=== PATIENT | female | born 1955 | race American Indian/Alaskan Native ===

== ENCOUNTER 2016-05-27 07:45 | Inpatient (IN) | payer OTHER ==
[2016-05-12 11:54] VITALS: BMI 55.7
[2016-06-07] MEDS ORDERED: Bacitracin 150,000 UNIT in Sodium Chloride 0.9% Irrig 3,000 ML IR SCH (09:00)
--- NOTE | 2016-06-07 12:30 | CP.PCM.HP ---
History of Present Illness - History of Present Illness History of Present Illness: 61F complains of left knee pain with significant DJD, failed conservative management, and elected for TKR. Patient had successful R TKR in 2007 without complications. PMH: asthma, has not used inhaler in over a year Medical clearance on chart PSH: cholecystectomy, hysterectomy, hernia repair, excisional biopsy breast, lap band labs on chart, reviewed, pt treated for 10,000-50,000 gram neg rods on culture with Bactrim Present on Admission - Present on Admission Any Indicators Present on Admission: No Past Patient History - Past Medical History & Family History Past Medical History?: Yes - Past Social History Smoking Status: Never Smoked - CARDIAC Hx Cardiac Disorders: Yes Hx Peripheral Edema: Yes - PULMONARY Hx Respiratory Disorders: Yes Hx Asthma: Yes (NEVER HOSPITALIZED-LAST EPISODE 2014) - NEUROLOGICAL Hx Neurological Disorder: No - HEENT Hx HEENT Problems: No - RENAL Hx Chronic Kidney Disease: No - ENDOCRINE/METABOLIC Hx Endocrine Disorders: No - HEMATOLOGICAL/ONCOLOGICAL Hx Blood Disorders: Yes Hx Blood Transfusions: Yes (childbirth 32 yrs ago) Hx Blood Transfusion Reaction: No - INTEGUMENTARY Hx Dermatological Problems: Yes Other/Comment: HX: LEFT BREAST LUMPECTOMY - MUSCULOSKELETAL/RHEUMATOLOGICAL Hx Musculoskeletal Disorders: Yes Hx Osteoarthritis: Yes (HX:BARBARA. IN RIGHT AND LEFT KNEES) - GASTROINTESTINAL Hx Gastrointestinal Disorders: Yes Hx Gall Bladder Disease: Yes Other/Comment: HX: LAP BAND - GENITOURINARY/GYNECOLOGICAL Hx Genitourinary Disorders: No - PSYCHIATRIC Hx Psychophysiologic Disorder: No Hx Substance Use: No - SURGICAL HISTORY Hx Surgeries: Yes Hx Breast Biopsy: Yes (LEFT BREAST) Hx Cholecystectomy: Yes Hx Dilation and Curettage: Yes (2012) Hx Herniorrhaphy: Yes (HX:UMBILICAL HERNIA REPAIR) Hx Hysterectomy: Yes Hx Joint Replacement: Yes Hx Orthopedic Surgery: Yes (TOTAL RIGHT KNEE REPLACEMRNT 2001) Hx Tubal Ligation: Yes (1989) Other/Comment: HX: GASTRIC LAP BAND 2009. HX: LEFT BREAST LUMPECTOMY - ANESTHESIA Hx Anesthesia: Yes Hx Anesthesia Reactions: No Hx Malignant Hyperthermia: No Has any member of the family had a problem w/ anesthesia?: Yes (cardiac arrest) Meds Allergies/Adverse Reactions: Allergies Allergy/AdvReac Type Severity Reaction Status Date / Time shellfish derived Allergy Severe ANAPHYLAXIS Verified 05/12/16 09:07 Physical Exam - Constitutional Appears: Well, No Acute Distress - Respiratory Exam Respiratory Exam: NORMAL BREATHING PATTERN - Extremities Exam Additional comments: calves soft NT neg homans +Rom ankle/toes, sensation intact +DP/PT pulses - Neurological Exam Neurological exam: Alert, Oriented x3 - Psychiatric Exam Psychiatric exam: Normal Affect, Normal Mood - Skin Skin Exam: Dry, Intact, Normal Color, Warm Results - Vital Signs Recent Vital Signs: Last Vital Signs Temp 97.9 F 06/07/16 11:40 Pulse 57 L 06/07/16 11:40 Resp 18 06/07/16 11:40 BP 131/70 06/07/16 11:40 Pulse Ox 100 06/07/16 11:40 Assessment & Plan (1) Primary osteoarthritis of left knee Status: Acute Comment: NPO. T&S. for OR
[2016-06-07] MEDS ORDERED: Morphine 1 mg/ml preservative-free Inj(Duramorph) ONE (13:30)
[2016-06-07] MEDS ORDERED: Bacitracin Ointment 30 GM TUBE ONE (13:46)
[2016-06-07] MEDS ORDERED: ceFAZolin IV 1 gm in Dextrose 100 ML IVPB ONE ×2 (13:47→23:28)
[2016-06-07] MEDS ORDERED: Bupivacaine Liposomal Inj 20 ml INFIL ONE (14:03)
[2016-06-07] MEDS ORDERED: Propofol 10 mg/ml Inj (20 ML) ONE (14:16)
[2016-06-07] MEDS ORDERED: Midazolam 2 MG/2 ML VIAL ONE ×2 (14:16→16:22)
[2016-06-07] MEDS ORDERED: Phenylephrine 10 mg/ml Inj ONE (15:15)
[2016-06-07] MEDS ORDERED: ePHEDrine 50 mg/ml Inj ONE (15:15)
[2016-06-07] MEDS ORDERED: Bupivacaine HCl 0.25% PF (10 ml) Inj ONE (15:46)
[2016-06-07] MEDS ORDERED: Oxycodone/Acetaminophen 5/325 mg Tab PO PRN (17:54)
[2016-06-07] MEDS ORDERED: HYDROmorphone 0.5 mg/0.5 ml ISec IVP PRN (17:54)
--- NOTE | 2016-06-07 17:54 | PCM.SURG1 ---
Surgeon's Initial Post Op Note - Surgeon's Notes Surgeon: Maya Coello MD Cart Pusher: Norman Graves PA-C, CRNA Type of Anesthesia: Spinal, Other (epidural) Anesthesia Administered By: Dr. Paige Pre-Operative Diagnosis: Left knee DJD Operative Findings: Tourniquet: 96 min @375mmhg Post-Operative Diagnosis: same Operation Performed: 1. Left total knee replacement. 2. Posterior capsular release. 3. Lateral retinacular release. 4. Anterior and posterior synovectomy. 5. Computer navigation Specimen/Specimens Removed: bone and synovium Estimated Blood Loss: EBL {In ML}: 125 Blood Products Given: N/A Drains Used: Hemovac Post-Op Condition: Fair Date of Surgery/Procedure: 06/07/16 Time of Surgery/Procedure: 17:54
[2016-06-07] MEDS ORDERED: Naloxone 0.4 mg/ml Inj (Adult) IVP PRN (18:00)
[2016-06-07] MEDS ORDERED: Acetaminophen IV 1,000 MG in Premixed IV 1 EA IV PRN (18:02)
[2016-06-07] MEDS ORDERED: Albuterol 0.083% Inhal Sol (2.5 mg/3 mL) UD INH PRN (18:46)
--- NOTE | 2016-06-07 18:57 | PCM.ANESB7 ---
Adductor Canal Block - Adductor Canal Block Date of Procedure: 06/07/16 Anesthiologist: Chloe Pre-Procedure Diagnosis: S/p left total knee arthroplasty Post-Procedure Diagnosis: s/p left total knee arthroplasty Procedure Performed: Adductor Canal Block Left - Procedure Adductor Canal Block: The procedure was explained to the patient that it is for the post-operative pain management. Consent was obtained after a thorough discussion with the patient regarding the benefits and possible complications of local anesthetic adductor canal block of the femoral nerve. Standard monitors were applied to the patient. Time-out was held with the circulating nurse to confirm the appropriate block. After applying supplemental oxygen, the patient was placed in supine position with and the operative leg was flexed slightly at the knee and externally rotated as needed, and was kept anatomically stable. The mid- thigh of the left lower extremity was exposed. The ultrasound transducer was then applied transversely along the medial aspect, about midway down the thigh and the femoral artery and vein were identified in appropriate relation with the sartorius muscle. At this time, the femoral nerve was visualized lateral to the femoral artery within the canal. After thorough identification, this area area was prepped with Chloroprep solution. At this point, a #22 gauge Stimuplex 4-inch needle was inserted in-plane in a [id number] orientation, and advanced toward the femoral nerve. Advancement was performed carefully under constant direct ultrasound visualization. After negative aspiration, 5cc of 0.5% Bupivacaine was injected and this was followed with 15cc of 0.5% Bupivacaine. Under ultrasound guidance the local anesthetics were observed spreading around the femoral nerve. The needle was removed intact and sterile dressing was applied. The patient had stable vital signs, was conscious and in no apparent distress. The patient tolerated the femoral nerve block well with stable vital signs.
--- NOTE | 2016-06-07 19:02 | CP.PCM.CON ---
<Janie Easley - Last Filed: 06/07/16 19:28> History of Present Illness - History of Present Illness History of Present Illness: PGY [address] Madera: Medicine consult for asthma 61 female presents today s/p total L knee repair by Dr. Coello done today. Tolerated well 125 cc blood loss. Medicine team was consulted for medical management of asthma. Patient said she has had asthma all of her life along with many of her family member. She used to use an albuterol pump last use being 3 years ago. She currently does not complain of any shortness of breath or wheezing. She has never been intubated due to asthma but was hospitalized in her 20s for asthma. She reports being given Bactrim recently for a urine infection. She denies dysruria or urinary frequency. PmHx - osteoarthrisis Allergies: shellfish Meds: Ibuprofen prn and vitamins Surg: lap band 2009, TKR R 2001, Umbilical hernia repair, DIC 2012, L breat lumpectomy Fam Hx: twin brothers with "heart problems", alsmot all family members have asthma, no stroke Social: Denies tobacco, alcohol, drug use. 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 Review of Systems - Constitutional Constitutional: absent: Chills, Fever - EENT Eyes: absent: Blurred Vision, Change in Vision - Cardiovascular Cardiovascular: absent: Chest Pain, Chest Pain at Rest, Leg Edema, Palpitations - Respiratory Respiratory: absent: Cough, Dyspnea, Dyspnea on Exertion - Gastrointestinal Gastrointestinal: absent: Abdominal Pain, Constipation, Diarrhea, Nausea, Vomiting - Genitourinary Genitourinary: absent: Change in Urinary Stream, Difficulty Urinating - Musculoskeletal Additional comments: Pain L LE post op - Neurological Neurological: absent: Tingling, Weakness Past Patient History - Past Medical History & Family History Past Medical History?: Yes - Past Social History Smoking Status: Never Smoked - CARDIAC Hx Cardiac Disorders: Yes Hx Peripheral Edema: Yes - PULMONARY Hx Respiratory Disorders: Yes Hx Asthma: Yes (NEVER HOSPITALIZED-LAST EPISODE 2014) - NEUROLOGICAL Hx Neurological Disorder: No - HEENT Hx HEENT Problems: No - RENAL Hx Chronic Kidney Disease: No - ENDOCRINE/METABOLIC Hx Endocrine Disorders: No - HEMATOLOGICAL/ONCOLOGICAL Hx Blood Disorders: Yes Hx Blood Transfusions: Yes (childbirth 32 yrs ago) Hx Blood Transfusion Reaction: No - INTEGUMENTARY Hx Dermatological Problems: Yes Other/Comment: HX: LEFT BREAST LUMPECTOMY - MUSCULOSKELETAL/RHEUMATOLOGICAL Hx Musculoskeletal Disorders: Yes Hx Osteoarthritis: Yes (HX:BARBARA. IN RIGHT AND LEFT KNEES) - GASTROINTESTINAL Hx Gastrointestinal Disorders: Yes Hx Gall Bladder Disease: Yes Other/Comment: HX: LAP BAND - GENITOURINARY/GYNECOLOGICAL Hx Genitourinary Disorders: No - PSYCHIATRIC Hx Psychophysiologic Disorder: No Hx Substance Use: No - SURGICAL HISTORY Hx Surgeries: Yes Hx Breast Biopsy: Yes (LEFT BREAST) Hx Cholecystectomy: Yes Hx Dilation and Curettage: Yes (2012) Hx Herniorrhaphy: Yes (HX:UMBILICAL HERNIA REPAIR) Hx Hysterectomy: Yes Hx Joint Replacement: Yes Hx Orthopedic Surgery: Yes (TOTAL RIGHT KNEE REPLACEMRNT 2001) Hx Tubal Ligation: Yes (1989) Other/Comment: HX: GASTRIC LAP BAND 2009. HX: LEFT BREAST LUMPECTOMY - ANESTHESIA Hx Anesthesia: Yes Hx Anesthesia Reactions: No Hx Malignant Hyperthermia: No Has any member of the family had a problem w/ anesthesia?: Yes (cardiac arrest) Meds Allergies/Adverse Reactions: Allergies Allergy/AdvReac Type Severity Reaction Status Date / Time shellfish derived Allergy Severe ANAPHYLAXIS Verified 05/12/16 09:07 - Medications Medications: Current Medications Acetaminophen (Tylenol 325mg Tab) 650 mg PO Q4 PRN PRN Reason: Fever 101 degrees fahrenheit Albuterol Sulfate (Albuterol 0.083% Inhal Sonia (2.5 Mg/3 Ml) Ud) 2.5 mg INH RQ6 PRN PRN Reason: Shortness of Breath Aspirin (Ecotrin) 81 mg PO Q12H RICHIE Docusate Sodium (Colace) 100 mg PO BID RICHIE Hydromorphone HCl (Dilaudid) 0.5 mg IVP Q4H PRN PRN Reason: Pain, severe (8-10) Cefazolin Sodium/Dextrose (Ancef Iv 2 Gm Duplex) 50 mls @ 100 mls/hr IVPB Q8H RICHIE Stop: 06/08/16 06:29 Sodium Chloride (Sodium Chloride 0.9%) 1,000 mls @ 80 mls/hr IV .[id number] RICHIE Acetaminophen 1,000 mg/ (Miscellaneous) 100 mls @ 400 mls/hr IV ONCE PRN PRN Reason: Pain, moderate (4-7) Stop: 06/08/16 18:03 Naloxone HCl (Narcan) 0.1 mg IVP Q2M PRN PRN Reason: apnea Ondansetron HCl (Zofran Inj) 4 mg IVP Q8H PRN PRN Reason: Nausea/Vomiting Oxycodone/Acetaminophen (Percocet 5/325 Mg Tab) 2 tab PO Q4H PRN PRN Reason: Pain, severe (8-10) Stop: 06/10/16 17:55 Physical Exam - Constitutional Appears: Non-toxic, No Acute Distress - Head Exam Head Exam: ATRAUMATIC, NORMAL INSPECTION - Eye Exam Eye Exam: EOMI, Normal appearance, PERRL Pupil Exam: NORMAL ACCOMODATION - ENT Exam ENT Exam: Mucous Membranes Moist - Respiratory Exam Respiratory Exam: Clear to Auscultation Bilateral, NORMAL BREATHING PATTERN. absent: Accessory Muscle Use, Chest Wall Tenderness, Wheezes, Respiratory Distress - Cardiovascular Exam Cardiovascular Exam: REGULAR RHYTHM, +S1, +S2 - GI/Abdominal Exam GI & Abdominal Exam: Normal Bowel Sounds, Soft. absent: Distended, Firm, Guarding, Tenderness Additional comments: Morbid Obesity - Extremities Exam Extremities exam: Positive for: normal inspection. Negative for: calf tenderness, pedal edema - Back Exam Back exam: NORMAL INSPECTION. absent: CVA tenderness (L), CVA tenderness (R), paraspinal tenderness - Neurological Exam Neurological exam: Alert, CN II-XII Intact, Oriented x3 - Psychiatric Exam Psychiatric exam: Normal Affect, Normal Mood - Skin Skin Exam: Dry, Intact, Normal Color, Warm Results - Vital Signs Recent Vital Signs: Last Vital Signs Temp 97.1 F L 06/07/16 17:57 Pulse 74 06/07/16 18:30 Resp 12 06/07/16 18:30 BP 139/69 06/07/16 18:30 Pulse Ox 100 06/07/16 18:30 - Labs Labs: Laboratory Results - last 24 hr 06/07/16 11:50 Blood Type A POSITIVE Antibody Screen Negative Assessment & Plan - Assessment and Plan (Free Text) Assessment: Asthma Albuterol 0.083% INH RQ6 prn SOb/wheezing Denies SOB Not wheezing Will check labs in the morning. Other management per Orthopedics <Sekou Madera - Last Filed: 06/08/16 12:47> Meds - Medications Medications: Current Medications Acetaminophen (Tylenol 325mg Tab) 650 mg PO Q4 PRN PRN Reason: Fever 101 degrees fahrenheit Albuterol Sulfate (Albuterol 0.083% Inhal Sonia (2.5 Mg/3 Ml) Ud) 2.5 mg INH RQ6 PRN PRN Reason: Shortness of Breath Aspirin (Ecotrin) 81 mg PO Q12H [facility] Last Admin: 06/08/16 09:35 Dose: 81 mg Docusate Sodium (Colace) 100 mg PO BID [facility] Last Admin: 06/08/16 09:35 Dose: 100 mg Hydromorphone HCl (Dilaudid) 1 mg IVP Q3H PRN PRN Reason: Pain, severe (8-10) Sodium Chloride (Sodium Chloride 0.9%) 1,000 mls @ 80 mls/hr IV .[id number] [facility] Acetaminophen 1,000 mg/ (Miscellaneous) 100 mls @ 400 mls/hr IV ONCE PRN PRN Reason: Pain, moderate (4-7) Stop: 06/08/16 18:03 Last Admin: 06/07/16 19:15 Dose: 100 mls Naloxone HCl (Narcan) 0.1 mg IVP Q2M PRN PRN Reason: apnea Ondansetron HCl (Zofran Inj) 4 mg IVP Q8H PRN PRN Reason: Nausea/Vomiting Oxycodone/Acetaminophen (Percocet 5/325 Mg Tab) 2 tab PO Q4H PRN PRN Reason: Pain, severe (8-10) Stop: 06/10/16 17:55 Last Admin: 06/08/16 06:25 Dose: 2 tab Results - Vital Signs Recent Vital Signs: Last Vital Signs Temp 98.3 F 06/08/16 07:35 Pulse 62 06/08/16 07:35 Resp 20 06/08/16 07:35 BP 117/78 06/08/16 07:35 Pulse Ox 97 06/08/16 07:35 - Labs Result Diagrams: 06/08/16 07:17 06/08/16 07:17 Labs: Laboratory Results - last 24 hr 06/07/16 06/08/16 11:50 07:17 WBC 7.6 RBC 4.07 Hgb 10.4 L Hct 32.9 L MCV 80.9 L MCH 25.5 L MCHC 31.6 L RDW 15.4 H Plt Count 217 MPV 8.0 PT 13.0 H INR 1.1 APTT 27 Sodium 135 Potassium 4.3 Chloride 96 L Carbon Dioxide 26 Anion Gap 17 BUN 13 Creatinine 0.7 Est GFR ( Amer) > 60 Est GFR (Non-Af Amer) > 60 Random Glucose 139 H Calcium 8.0 L Phosphorus 3.8 Magnesium 1.7 Total Bilirubin 0.3 AST 34 ALT 23 Alkaline Phosphatase 50 Total Protein 6.5 Albumin 3.3 L Globulin 3.2 Albumin/Globulin Ratio 1.0 Blood Type A POSITIVE Antibody Screen Negative Attending/Attestation - Attestation I have personally seen and examined this patient.: Yes I have fully participated in the care of the patient.: Yes I have reviewed all pertinent clinical information: Yes Notes (Text): Medical Consult: Patient was seen and examined by me. Agree with the above note by resident. Patient is status post total knee replacement. There is a history of asthma from many year previous however patient reports she has been feeling well and has not had to use any type of inhaler for some time now. Early in the morning she had not urinated and the patient had a straight cath done and reported 600 cc of urine was collected. From what was explained to me the patient had an epidural, this may be contributing to the retention. Will have to monitor. thank you Sekou Madera
[2016-06-07] MEDS ORDERED: Sodium Chloride 0.9% 1,000 ML IV ONE (22:17)
[2016-06-07] MEDS: ceFAZolin IV 2 gm in Dextrose 50 ML IVPB SCH (23:30)
[2016-06-08 01:34] VITALS: RESP 20
[2016-06-08] MEDS: ceFAZolin IV 2 gm in Dextrose 50 ML IVPB SCH (06:17)
[2016-06-08 07:40] LABS: HEMATOCRIT 32.9 % (34.0-47.0); MEAN CELL VOLUME 80.9 fL (81.0-99.0); MEAN CORPUSCULAR HEMOGLOBIN 25.5 pg (27.0-31.0); MEAN CORPUSCULAR HGB CONC 31.6 g/dL (33.0-37.0); RED CELL DISTRIBUTION WIDTH 15.4 % (11.5-14.5); WHITE BLOOD COUNT 7.6 K/uL (4.8-10.8)
[2016-06-08 07:47] LABS: CHLORIDE 96 mmol/L (98-107); INR 1.1
[2016-06-08 07:48] LABS: POTASSIUM 4.3 mmol/L (3.6-5.2); SODIUM 135 mmol/L (132-148)
[2016-06-08 07:50] LABS: ALKALINE PHOSPHATASE 50 U/L (38-126); ALT/SGPT 23 U/L (9-52); AST/SGOT 34 U/L (14-36); BILIRUBIN,TOTAL 0.3 mg/dL (0.2-1.3); BLOOD UREA NITROGEN 13 mg/dL (7-17); CARBON DIOXIDE 26 mmol/L (22-30); GFR AFRICAN-AMERICAN > 60; GLUCOSE,RANDOM 139 mg/dL (65-105); PHOSPHOROUS 3.8 mg/dL (2.5-4.5); TOTAL PROTEIN 6.5 g/dL (6.3-8.3)
[2016-06-08 07:51] LABS: MAGNESIUM 1.7 mg/dL (1.6-2.3)
--- NOTE | 2016-06-08 09:02 | CP.PCM.PN ---
Subjective - Date & Time of Evaluation Date of Evaluation: 06/08/16 Time of Evaluation: 08:59 - Subjective Subjective: Patient states that dilaudid isn't strong enough and doesn't last long enough. The percocet helped. Patient was unable to void, even on commode, and had straight cath at 4am. She admits to poor appetite. Denies CP/SOB/dizziness. Denies numbness/tingling/n/v Objective - Vital Signs/Intake and Output Vital Signs (last 24 hours): Temp Pulse Resp BP Pulse Ox 97.6 F 60 20 97/63 L 100 06/08/16 04:05 06/08/16 04:05 06/07/16 23:45 06/08/16 04:05 06/07/16 23:45 Intake and Output: 06/08/16 06/08/16 06:59 18:59 Intake Total 1070 Output Total 785 Balance 285 - Medications Medications: Current Medications Acetaminophen (Tylenol 325mg Tab) 650 mg PO Q4 PRN PRN Reason: Fever 101 degrees fahrenheit Albuterol Sulfate (Albuterol 0.083% Inhal Sonia (2.5 Mg/3 Ml) Ud) 2.5 mg INH RQ6 PRN PRN Reason: Shortness of Breath Aspirin (Ecotrin) 81 mg PO Q12H RICHIE Docusate Sodium (Colace) 100 mg PO BID RICHIE Hydromorphone HCl (Dilaudid) 1 mg IVP Q3H PRN PRN Reason: Pain, severe (8-10) Sodium Chloride (Sodium Chloride 0.9%) 1,000 mls @ 80 mls/hr IV .[id number] RICHIE Acetaminophen 1,000 mg/ (Miscellaneous) 100 mls @ 400 mls/hr IV ONCE PRN PRN Reason: Pain, moderate (4-7) Stop: 06/08/16 18:03 Last Admin: 06/07/16 19:15 Dose: 100 mls Naloxone HCl (Narcan) 0.1 mg IVP Q2M PRN PRN Reason: apnea Ondansetron HCl (Zofran Inj) 4 mg IVP Q8H PRN PRN Reason: Nausea/Vomiting Oxycodone/Acetaminophen (Percocet 5/325 Mg Tab) 2 tab PO Q4H PRN PRN Reason: Pain, severe (8-10) Stop: 06/10/16 17:55 Last Admin: 06/08/16 06:25 Dose: 2 tab - Labs Labs: 06/08/16 07:17 06/08/16 07:17 PT 13.0 SECONDS (9.7-12.2) H 06/08/16 07:17 INR 1.1 06/08/16 07:17 APTT 27 SECONDS (21-34) 06/08/16 07:17 - Constitutional Appears: Well, No Acute Distress - Extremities Exam Additional comments: +ROM toes flex/ext, toes warm, sensation intact left calf soft NT neg homans hemovac 50cc overnight - Skin Skin Exam: Intact, Normal Color, Warm Additional comments: no erythema Assessment and Plan (1) Primary osteoarthritis of left knee Assessment & Plan: POD# 1 s/p left TKR -PT-OT-CPM -cont IVF for now, BP low this am, likely due to medication -monitor urine output -d/c planning to home with home PT -d/w Dr. Coello, agrees with above -VTE proph ASA [address] Coello Status: Acute (2) Morbid obesity with BMI of 50.0-59.9, adult Status: Chronic
--- NOTE | 2016-06-08 09:52 | RAD ---
PROCEDURE: Left Knee Radiographs. HISTORY: Pain. COMPARISON: None. FINDINGS: BONES: Patient status post total left hip replacement/ arthroplasty. JOINTS: Normal. No osteoarthritis. JOINT EFFUSION: Postsurgical changes are seen around the left knee. OTHER FINDINGS: None. IMPRESSION: Status post left knee arthroplasty / total replacement .
--- NOTE | 2016-06-08 10:34 | OP ---
PROCEDURE DATE: 06/07/2016 PREOPERATIVE DIAGNOSES: 1. Primary osteoarthritis of the left knee. 2. Morbid obesity. POSTOPERATIVE DIAGNOSES: 1. Primary osteoarthritis of the left knee. 2. Morbid obesity. OPERATIVE FINDINGS: Severe tricompartmental osteoarthritis. Severe tricompartmental synovitis. OPERATIVE PROCEDURES: 1. Left total knee replacement, computer-navigated. 2. Posterior capsular release. 3. Lateral patellar retinacular release. 4. Anterior and posterior synovectomy. 5. Computer navigation. SURGEON: Jacinto Coello MD. SOCIAL STUDIES TEACHER: Alessio Dickson PA-C. SECOND MILK DELIVERY DRIVER: Dedra Juen, Certified Registered Mill Laborer. THIRD MILK DELIVERY DRIVER: Medical student, ____. SPECIMENS: Removed bone cartilage, synovium. BLOOD LOSS: 125 mL. BLOOD PRODUCTS: None given. DRAINS: One Hemovac drain. POSTOPERATIVE CONDITION: Stable. OPERATIVE INDICATION: The patient is a 61-year-old woman well-known to my practice, who presents wit h marked discomfort, pain, and restricted range of motion of the left knee. The patient is status po st contralateral right total knee replacement in 2007. The patient can no longer stand the discomfor t, has been treating it conservatively with activity modification and intraarticular injection. Unfo rtunately, the patient has been unable to undergo weight loss. The patient presents with marked disc omfort, pain, and restricted range of motion of the left knee. OPERATIVE PROCEDURE: 1. After having obtained informed consent in the above fashion, after thoroughly discussing the pros , cons, risks, and benefits of left total knee in a patient her size - she is 334 pounds, BMI of 55, the possibility of mechanical failure, infection, thromboembolic disease discussed. The patient can no longer stand the discomfort and wished the surgery to be accomplished. 2. After having obtained informed consent, after the satisfactory induction of spinal and sedation b y Dr. Lucas Paige, the left lower extremity is prepped and free draped in the usual fashion for lower extremity surgery. The tourniquet had been applied, but is not yet inflated. After sterilely preppi ng and draping, after having identified side, site, and procedure, and a critical pause/timeout, the left lower extremity is exsanguinated using a 6-inch Esmarch bandage. The tourniquet, which had been applied, is inflated to 350 mmHg. A straight midline approach was made to the knee. The skin incis ion is carried down through the skin and subcutaneous tissue. A medial arthrotomy is accomplished. An anterior synovectomy is accomplished. There is exuberant synovitis. The lateral patellar retinac ular release is accomplished both to ensure patellar tracking and also to allow eversion. The knee i s flexed. The patella is everted. Anterior and posterior cruciate ligaments are excised. Medial an d lateral menisci are excised. The tibia is dislocated anteriorly, and the initial osteotomy of the arthroplasty is accomplished on the tibial side. This having been accomplished, computer navigation commences. The OrthAlign situation was placed ant eriorly. This having been accomplished, the medial and lateral varus valgus is set at 0 degrees with 0-degree posterior slope. The medial malleolus is registered and lateral malleolus. The osteotomy is accomplished 8 mm below the more prominent side. Osteotomy having been accomplished, the posterio r synovectomy at this point in time is accomplished, and a posterior capsular release. The #5 tibial component is sized, and the proximal tibia is prepared with the guides to rotation being the lateral aspect of the tibial condyle, mid malleolar axis, medial third of the tibial tuberosity. Attention is turned to the femur. Notch osteophytes, border osteophytes are debrided. At this point , the accelerometer was placed over the guide pin, and varus valgus is set to 0 degrees with 0.5 deg sherry of flexion. This having been accomplished, the cut is set at 9 mm. The distal osteotomy having been accomplished, the anterior and posterior sizing is found to be a #4. The 4-in-[address] across the epicondylar axis. Anterior and posterior osteotomies were accomplished as well as chamf er cuts. A posterior synovectomy is accomplished. Posterior capsule was released, and at this point in time, the intercondylar notch is debrided with a bur. The #4 trial component is placed. The #5 tibial component with 50-mm polyethylene was found to be stable. The posterior capsule was released. Lateral patella was released. Attention was turned to the patella. Patellar girth 31 mm. Freehand patellar osteotomy is accomplis hed with 38-mm cut. This having been accomplished, the wound is thoroughly irrigated, and flexion an d extension are found to be stable. There is no evidence of patellar instability. There is no evide nce of flexion gap instability. The femur, tibia, and patella are prepared. The #4 cemented femoral component is applied, #5 cemented tibial tray, 38-mm polyethylene is cemented as well as 15-mm ultra congruent insert. The knee is found to be stable. The wound is thoroughly irrigated. The tournique t is deflated. Exparel is introduced. Hemostasis controlled with the Aquamantys. Again, the patell ar balance is excellent, and the flexion, extension gap was found to be excellent. OPERATION PERFORMED: Left total knee replacement, posterior capsular release, lateral patellar retin acular release, anterior and posterior synovectomy, computer navigation with the SyMynd. Closure is in layers with #2 Quill followed by #2 Quill. Vicryl and estela for skin over an eighth inch suction Hemovac drain. Antonio Monae compression dressing and knee immobilizer were applied. Jacinto Coello MD cc: [id number] TT: 06/08/2016 10:33:18 jn
[2016-06-08] MEDS: Sodium Chloride 0.9% 1,000 ML IV SCH (12:51)
[2016-06-08] MEDS: HYDROmorphone 1 mg/ml ISec IVP PRN ×2 (13:15→21:09)
--- NOTE | 2016-06-08 17:38 | CP.PCM.PN ---
<Janie Easley - Last Filed: 06/08/16 18:04> Subjective - Date & Time of Evaluation Date of Evaluation: 06/08/16 Time of Evaluation: 07:10 - Subjective Subjective: Medicine note for Dr. Madera: Patient seen and examined at bedside this morning. She denies shortness of breath, wheezing, or chest pain. She reports pain in her knee where the surgery was done and states that she feels like she needs more pain medications. Per nursing the patient was not able to urinate overnight. Bladder scan was done and the patient was straight cathed and 600 cc of urine was obtained. Patient still reports that she is not able to urinate. Bladder scan was repeated this afternoon and showed 150 cc of urine. Patient straight cathed again and 400cc urine obtained. Will monitor for urine output. Objective - Vital Signs/Intake and Output Vital Signs (last 24 hours): Temp Pulse Resp BP Pulse Ox 98.4 F 71 20 147/85 100 06/08/16 15:22 06/08/16 15:22 06/08/16 15:22 06/08/16 15:22 06/08/16 15:22 Intake and Output: 06/08/16 06/08/16 06:59 18:59 Intake Total 1070 Output Total 785 60 Balance 285 -60 - Medications Medications: Current Medications Acetaminophen (Tylenol 325mg Tab) 650 mg PO Q4 PRN PRN Reason: Fever 101 degrees fahrenheit Albuterol Sulfate (Albuterol 0.083% Inhal Sonia (2.5 Mg/3 Ml) Ud) 2.5 mg INH RQ6 PRN PRN Reason: Shortness of Breath Aspirin (Ecotrin) 81 mg PO Q12H [facility] Last Admin: 06/08/16 09:35 Dose: 81 mg Docusate Sodium (Colace) 100 mg PO BID [facility] Last Admin: 06/08/16 09:35 Dose: 100 mg Hydromorphone HCl (Dilaudid) 1 mg IVP Q3H PRN PRN Reason: Pain, severe (8-10) Last Admin: 06/08/16 13:15 Dose: 1 mg Sodium Chloride (Sodium Chloride 0.9%) 1,000 mls @ 80 mls/hr IV .[id number] [facility] Last Admin: 06/08/16 12:51 Dose: 80 mls/hr Acetaminophen 1,000 mg/ (Miscellaneous) 100 mls @ 400 mls/hr IV ONCE PRN PRN Reason: Pain, moderate (4-7) Stop: 06/08/16 18:03 Last Admin: 06/07/16 19:15 Dose: 100 mls Naloxone HCl (Narcan) 0.1 mg IVP Q2M PRN PRN Reason: apnea Ondansetron HCl (Zofran Inj) 4 mg IVP Q8H PRN PRN Reason: Nausea/Vomiting Oxycodone/Acetaminophen (Percocet 5/325 Mg Tab) 2 tab PO Q4H PRN PRN Reason: Pain, severe (8-10) Stop: 06/10/16 17:55 Last Admin: 06/08/16 06:25 Dose: 2 tab - Labs Labs: 06/08/16 07:17 06/08/16 07:17 PT 13.0 SECONDS (9.7-12.2) H 06/08/16 07:17 INR 1.1 06/08/16 07:17 APTT 27 SECONDS (21-34) 06/08/16 07:17 - Constitutional Appears: Non-toxic, No Acute Distress - Head Exam Head Exam: NORMAL INSPECTION - Eye Exam Eye Exam: EOMI, Normal appearance, PERRL Pupil Exam: NORMAL ACCOMODATION - ENT Exam ENT Exam: Mucous Membranes Moist - Neck Exam Neck Exam: Normal Inspection - Respiratory Exam Respiratory Exam: Clear to Ausculation Bilateral, NORMAL BREATHING PATTERN. absent: Wheezes, Respiratory Distress - Cardiovascular Exam Cardiovascular Exam: REGULAR RHYTHM, +S1, +S2 - GI/Abdominal Exam GI & Abdominal Exam: Soft, Normal Bowel Sounds. absent: Distended, Firm, Guarding, Tenderness Additional comments: Obese - Extremities Exam Extremities Exam: Normal Inspection. absent: Calf Tenderness, Pedal Edema Additional comments: L leg/knee pain. Able to move toes, sensation in tact. Dressing and brace in tact clean and dry. - Back Exam Back Exam: NORMAL INSPECTION. absent: CVA tenderness (L), CVA tenderness (R), paraspinal tenderness - Neurological Exam Neurological Exam: Alert, Awake, CN II-XII Intact, Oriented x3 - Psychiatric Exam Psychiatric exam: Normal Affect, Normal Mood - Skin Skin Exam: Dry, Intact, Normal Color, Warm Assessment and Plan - Assessment and Plan (Free Text) Assessment: Asthma Albuterol 0.083% INH RQ6 prn SOB/wheezing Denies SOB Not wheezing Will check labs in the morning. Urinary retention Stright Cath 4/3 at 4AM - 600 urine Staright Cath 4.3 at 3PM - 400 cc urine patient had an epidural, this may be contributing to the retention Will have to monitor Consider Urology consult if still retaining tomorrow Other management per Orthopedics, Dr. Coello <Sekou Madera H - Last Filed: 06/08/16 19:05> Objective - Vital Signs/Intake and Output Vital Signs (last 24 hours): Temp Pulse Resp BP Pulse Ox 98.4 F 71 20 147/85 100 06/08/16 15:22 06/08/16 15:22 06/08/16 15:22 06/08/16 15:22 06/08/16 15:22 Intake and Output: 06/08/16 06/09/16 18:59 06:59 Output Total 60 Balance -60 - Medications Medications: Current Medications Acetaminophen (Tylenol 325mg Tab) 650 mg PO Q4 PRN PRN Reason: Fever 101 degrees fahrenheit Albuterol Sulfate (Albuterol 0.083% Inhal Sonia (2.5 Mg/3 Ml) Ud) 2.5 mg INH RQ6 PRN PRN Reason: Shortness of Breath Aspirin (Ecotrin) 81 mg PO Q12H [facility] Last Admin: 06/08/16 09:35 Dose: 81 mg Docusate Sodium (Colace) 100 mg PO BID [facility] Last Admin: 06/08/16 09:35 Dose: 100 mg Hydromorphone HCl (Dilaudid) 1 mg IVP Q3H PRN PRN Reason: Pain, severe (8-10) Last Admin: 06/08/16 13:15 Dose: 1 mg Sodium Chloride (Sodium Chloride 0.9%) 1,000 mls @ 80 mls/hr IV .[id number] [facility] Last Admin: 06/08/16 12:51 Dose: 80 mls/hr Naloxone HCl (Narcan) 0.1 mg IVP Q2M PRN PRN Reason: apnea Ondansetron HCl (Zofran Inj) 4 mg IVP Q8H PRN PRN Reason: Nausea/Vomiting Oxycodone/Acetaminophen (Percocet 5/325 Mg Tab) 2 tab PO Q4H PRN PRN Reason: Pain, severe (8-10) Stop: 06/10/16 17:55 Last Admin: 06/08/16 06:25 Dose: 2 tab - Labs Labs: 06/08/16 07:17 06/08/16 07:17 PT 13.0 SECONDS (9.7-12.2) H 06/08/16 07:17 INR 1.1 06/08/16 07:17 APTT 27 SECONDS (21-34) 06/08/16 07:17 Attending/Attestation - Attestation I have personally seen and examined this patient.: Yes I have fully participated in the care of the patient.: Yes I have reviewed all pertinent clinical information, including history, physical exam and plan: Yes Notes (Text): Medical Consult: Patient was seen and examined by me. Agree with the above note by the resident. The patient had to be straight catheter again after she did not urinate on her own. It has been almost 24 hrs after the epidural for the total knee replacement. Continue to monitor. If does not urinate on own in 48hrs then may need neurology or urology evaluation. thank you Skeou Madera
[2016-06-09] MEDS: Sodium Chloride 0.9% 1,000 ML IV SCH (02:42)
[2016-06-09] MEDS: HYDROmorphone 1 mg/ml ISec IVP PRN ×2 (03:08→09:54)
--- NOTE | 2016-06-09 07:07 | CP.PCM.PN ---
<Janie Easley - Last Filed: 06/09/16 13:24> Subjective - Date & Time of Evaluation Date of Evaluation: 06/09/16 Time of Evaluation: 07:00 - Subjective Subjective: Medicine note for Dr. Madera: Patient seen and examined at bedside this morning. She denies shortness of breath, wheezing, or chest pain. She reports pain in her knee but states that the increase in pain meds yesterday helped. Patient is now able to urinate on her own. She has not had a BM but passing flatus and reports a low appetite. She is using her incentive spirometer. She reports working with Physical Therapy yesterday. She is to be discharged today to [facility]. Objective - Vital Signs/Intake and Output Vital Signs (last 24 hours): Temp Pulse Resp BP Pulse Ox 98.1 F 70 20 135/74 97 06/09/16 04:00 06/09/16 04:00 06/09/16 04:00 06/09/16 04:00 06/09/16 04:00 Intake and Output: 06/09/16 06/09/16 06:59 18:59 Intake Total 1600 Output Total 960 Balance 640 - Medications Medications: Current Medications Acetaminophen (Tylenol 325mg Tab) 650 mg PO Q4 PRN PRN Reason: Fever 101 degrees fahrenheit Albuterol Sulfate (Albuterol 0.083% Inhal Sonia (2.5 Mg/3 Ml) Ud) 2.5 mg INH RQ6 PRN PRN Reason: Shortness of Breath Aspirin (Ecotrin) 81 mg PO Q12H [facility] Last Admin: 06/08/16 21:11 Dose: 81 mg Docusate Sodium (Colace) 100 mg PO BID [facility] Last Admin: 06/08/16 21:10 Dose: 100 mg Hydromorphone HCl (Dilaudid) 1 mg IVP Q3H PRN PRN Reason: Pain, severe (8-10) Last Admin: 06/09/16 03:08 Dose: 1 mg Sodium Chloride (Sodium Chloride 0.9%) 1,000 mls @ 80 mls/hr IV .[id number] [facility] Last Admin: 06/09/16 02:42 Dose: 80 mls/hr Naloxone HCl (Narcan) 0.1 mg IVP Q2M PRN PRN Reason: apnea Ondansetron HCl (Zofran Inj) 4 mg IVP Q8H PRN PRN Reason: Nausea/Vomiting Oxycodone/Acetaminophen (Percocet 5/325 Mg Tab) 2 tab PO Q4H PRN PRN Reason: Pain, severe (8-10) Stop: 06/10/16 17:55 Last Admin: 06/08/16 06:25 Dose: 2 tab - Labs Labs: 06/08/16 07:17 06/08/16 07:17 PT 13.0 SECONDS (9.7-12.2) H 06/08/16 07:17 INR 1.1 06/08/16 07:17 APTT 27 SECONDS (21-34) 06/08/16 07:17 - Constitutional Appears: Non-toxic, No Acute Distress - Head Exam Head Exam: ATRAUMATIC - Eye Exam Eye Exam: EOMI, Normal appearance, PERRL Pupil Exam: NORMAL ACCOMODATION - ENT Exam ENT Exam: Mucous Membranes Moist - Neck Exam Neck Exam: Full ROM - Respiratory Exam Respiratory Exam: Clear to Ausculation Bilateral, NORMAL BREATHING PATTERN. absent: Accessory Muscle Use, Chest Wall Tenderness, Wheezes, Respiratory Distress - Cardiovascular Exam Cardiovascular Exam: REGULAR RHYTHM, +S1, +S2 - GI/Abdominal Exam GI & Abdominal Exam: Soft, Normal Bowel Sounds. absent: Distended, Firm, Guarding, Tenderness Additional comments: Obese - Extremities Exam Extremities Exam: Full ROM, Normal Inspection. absent: Calf Tenderness, Pedal Edema Additional comments: +ROM ankle/toes, sensation intact, +DP pulse, able to move toes, no erythema, mild swelling only. drain to be pulled today by Ortho - Back Exam Back Exam: NORMAL INSPECTION. absent: CVA tenderness (L), CVA tenderness (R), paraspinal tenderness - Neurological Exam Neurological Exam: Alert, Awake, CN II-XII Intact, Oriented x3 - Psychiatric Exam Psychiatric exam: Normal Affect, Normal Mood - Skin Skin Exam: Dry, Intact, Normal Color, Warm Assessment and Plan - Assessment and Plan (Free Text) Assessment: Asthma rec: Albuterol 0.083% INH RQ6 prn SOB/wheezing Denies SOB Not wheezing Lungs clear bilaterally Urinary retention Resolved - she is able to urinate Stright Cath 4/3 at 4AM - 600 urine Staright Cath 4.3 at 3PM - 400 cc urine patient had an epidural, this may be contributing to the retention Will have to monitor Consider Urology consult if still retaining tomorrow Management and discharge per Orthopedics. Patient is stable for discharge to physical therapy facility with Albuterol prn SOB. <Sekou Madera H - Last Filed: 06/09/16 14:31> Objective - Vital Signs/Intake and Output Vital Signs (last 24 hours): Temp Pulse Resp BP Pulse Ox 98.3 F 75 20 135/75 99 06/09/16 07:00 06/09/16 07:00 06/09/16 07:00 06/09/16 07:00 06/09/16 07:00 Intake and Output: 06/09/16 06/09/16 06:59 18:59 Intake Total 1600 Output Total 960 Balance 640 - Medications Medications: Current Medications Acetaminophen (Tylenol 325mg Tab) 650 mg PO Q4 PRN PRN Reason: Fever 101 degrees fahrenheit Albuterol Sulfate (Albuterol 0.083% Inhal Sonia (2.5 Mg/3 Ml) Ud) 2.5 mg INH RQ6 PRN PRN Reason: Shortness of Breath Aspirin (Ecotrin) 81 mg PO Q12H [facility] Last Admin: 06/09/16 09:55 Dose: 81 mg Docusate Sodium (Colace) 100 mg PO BID [facility] Last Admin: 06/09/16 09:55 Dose: 100 mg Hydromorphone HCl (Dilaudid) 1 mg IVP Q3H PRN PRN Reason: Pain, severe (8-10) Last Admin: 06/09/16 09:54 Dose: 1 mg Naloxone HCl (Narcan) 0.1 mg IVP Q2M PRN PRN Reason: apnea Ondansetron HCl (Zofran Inj) 4 mg IVP Q8H PRN PRN Reason: Nausea/Vomiting Oxycodone/Acetaminophen (Percocet 5/325 Mg Tab) 2 tab PO Q4H PRN PRN Reason: Pain, severe (8-10) Stop: 06/10/16 17:55 Last Admin: 06/08/16 06:25 Dose: 2 tab - Labs Labs: 06/09/16 07:08 06/09/16 07:08 PT 13.0 SECONDS (9.7-12.2) H 06/08/16 07:17 INR 1.1 06/08/16 07:17 APTT 27 SECONDS (21-34) 06/08/16 07:17 Attending/Attestation - Attestation I have personally seen and examined this patient.: Yes I have fully participated in the care of the patient.: Yes I have reviewed all pertinent clinical information, including history, physical exam and plan: Yes Notes (Text): Medical Consult: When we saw the patient she reported doing well - she was urinating on her own and did not require straight cath any longer. She was not short of breath, not having chest pain, and the pain in her lower extremity was controlled with the medications she is being given. thank you Sekou Madera
[2016-06-09 07:15] LABS: BASO % 0.1 % (0.0-2.0); EOS % 0.1 % (0.0-4.0); HEMATOCRIT 31.6 % (34.0-47.0); LYMPH # 1.4 K/uL (1.0-4.3); LYMPH % 11.5 % (20.0-40.0); MEAN CORPUSCULAR HEMOGLOBIN 25.5 pg (27.0-31.0); MEAN CORPUSCULAR HGB CONC 31.9 g/dL (33.0-37.0); MEAN PLATELET VOLUME 7.6 fL (7.2-11.7); MONO # 0.9 K/uL (0.0-0.8); MONO % 7.7 % (0.0-10.0); RED CELL DISTRIBUTION WIDTH 15.2 % (11.5-14.5)
[2016-06-09 07:46] LABS: CHLORIDE 93 mmol/L (98-107)
[2016-06-09 07:47] LABS: POTASSIUM 3.8 mmol/L (3.6-5.2); SODIUM 132 mmol/L (132-148)
[2016-06-09 07:49] LABS: ALKALINE PHOSPHATASE 54 U/L (38-126); AST/SGOT 28 U/L (14-36); BILIRUBIN,TOTAL 0.6 mg/dL (0.2-1.3); BLOOD UREA NITROGEN 9 mg/dL (7-17); CARBON DIOXIDE 28 mmol/L (22-30); GFR AFRICAN-AMERICAN > 60; GLUCOSE,RANDOM 130 mg/dL (65-105); TOTAL PROTEIN 6.5 g/dL (6.3-8.3)
[2016-06-09 07:50] LABS: ALT/SGPT 23 U/L (9-52); CALCIUM 8.1 mg/dl (8.6-10.4); MAGNESIUM 1.6 mg/dL (1.6-2.3); PHOSPHOROUS 2.5 mg/dL (2.5-4.5)
--- NOTE | 2016-06-09 08:34 | CP.PCM.PN ---
Subjective - Date & Time of Evaluation Date of Evaluation: 06/09/16 Time of Evaluation: 08:31 - Subjective Subjective: Patient still with poor appetite. Pain controlled with pain medication. Denies CP/SOB/dizziness. Patient able to void freely now. Objective - Vital Signs/Intake and Output Vital Signs (last 24 hours): Temp Pulse Resp BP Pulse Ox 98.1 F 70 20 135/74 97 06/09/16 04:00 06/09/16 04:00 06/09/16 04:00 06/09/16 04:00 06/09/16 04:00 Intake and Output: 06/09/16 06/09/16 06:59 18:59 Intake Total 1600 Output Total 960 Balance 640 - Medications Medications: Current Medications Acetaminophen (Tylenol 325mg Tab) 650 mg PO Q4 PRN PRN Reason: Fever 101 degrees fahrenheit Albuterol Sulfate (Albuterol 0.083% Inhal Sonia (2.5 Mg/3 Ml) Ud) 2.5 mg INH RQ6 PRN PRN Reason: Shortness of Breath Aspirin (Ecotrin) 81 mg PO Q12H [facility] Last Admin: 06/08/16 21:11 Dose: 81 mg Docusate Sodium (Colace) 100 mg PO BID [facility] Last Admin: 06/08/16 21:10 Dose: 100 mg Hydromorphone HCl (Dilaudid) 1 mg IVP Q3H PRN PRN Reason: Pain, severe (8-10) Last Admin: 06/09/16 03:08 Dose: 1 mg Sodium Chloride (Sodium Chloride 0.9%) 1,000 mls @ 80 mls/hr IV .[id number] [facility] Last Admin: 06/09/16 02:42 Dose: 80 mls/hr Naloxone HCl (Narcan) 0.1 mg IVP Q2M PRN PRN Reason: apnea Ondansetron HCl (Zofran Inj) 4 mg IVP Q8H PRN PRN Reason: Nausea/Vomiting Oxycodone/Acetaminophen (Percocet 5/325 Mg Tab) 2 tab PO Q4H PRN PRN Reason: Pain, severe (8-10) Stop: 06/10/16 17:55 Last Admin: 06/08/16 06:25 Dose: 2 tab - Labs Labs: 06/09/16 07:08 06/09/16 07:08 PT 13.0 SECONDS (9.7-12.2) H 06/08/16 07:17 INR 1.1 06/08/16 07:17 APTT 27 SECONDS (21-34) 06/08/16 07:17 - Constitutional Appears: Well, No Acute Distress - Extremities Exam Additional comments: +ROM ankle/toes sensation intact +DP pulse calves soft NT neg homans dressing changed and hemovac pulled aquacel left intact no erythema, mild swelling only, scant serosang drainage on dressing Assessment and Plan (1) Primary osteoarthritis of left knee Assessment & Plan: POD#2 s/p left TKR -plan d/c home with PT -Cont inpatient PT/OT at this time -monitor labs -d/w Dr. Coello, agrees with above -ASA for VTE proph Status: Acute (2) Morbid obesity with BMI of 50.0-59.9, adult Status: Chronic (3) Acute blood loss anemia Assessment & Plan: labs in am Status: Acute
--- NOTE | 2016-06-09 13:23 | CP.PCM.DIS ---
Provider - Provider Date of Admission: 06/07/16 10:27 Attending physician: Jacinto Coello III, MD Consults: hospitalist Time Spent in preparation of Discharge (in minutes): 5 Diagnosis - Discharge Diagnosis (1) Primary osteoarthritis of left knee Status: Acute (2) Morbid obesity with BMI of 50.0-59.9, adult Status: Chronic (3) Acute blood loss anemia Status: Acute Hospital Course - Lab Results Lab Results: Most Recent Lab Values WBC 12.0 K/uL (4.8-10.8) H D 06/09/16 07:08 RBC 3.95 Mil/uL (3.80-5.20) 06/09/16 07:08 Hgb 10.1 g/dL (11.0-16.0) L 06/09/16 07:08 Hct 31.6 % (34.0-47.0) L 06/09/16 07:08 MCV 80.0 fL (81.0-99.0) L 06/09/16 07:08 MCH 25.5 pg (27.0-31.0) L 06/09/16 07:08 MCHC 31.9 g/dL (33.0-37.0) L 06/09/16 07:08 RDW 15.2 % (11.5-14.5) H 06/09/16 07:08 Plt Count 214 K/uL (130-400) 06/09/16 07:08 MPV 7.6 fL (7.2-11.7) 06/09/16 07:08 Neut % (Auto) 80.6 % (50.0-75.0) H 06/09/16 07:08 Lymph % (Auto) 11.5 % (20.0-40.0) L 06/09/16 07:08 [place] % (Auto) 7.7 % (0.0-10.0) 06/09/16 07:08 Eos % (Auto) 0.1 % (0.0-4.0) 06/09/16 07:08 Baso % (Auto) 0.1 % (0.0-2.0) 06/09/16 07:08 Neut # 9.7 K/uL (1.8-7.0) H 06/09/16 07:08 Lymph # 1.4 K/uL (1.0-4.3) 06/09/16 07:08 [place] # 0.9 K/uL (0.0-0.8) H 06/09/16 07:08 Eos # 0.0 K/uL (0.0-0.7) 06/09/16 07:08 Baso # 0.0 K/uL (0.0-0.2) 06/09/16 07:08 PT 13.0 SECONDS (9.7-12.2) H 06/08/16 07:17 INR 1.1 06/08/16 07:17 APTT 27 SECONDS (21-34) 06/08/16 07:17 Sodium 132 mmol/L (132-148) 06/09/16 07:08 Potassium 3.8 mmol/L (3.6-5.2) 06/09/16 07:08 Chloride 93 mmol/L (98-107) L 06/09/16 07:08 Carbon Dioxide 28 mmol/L (22-30) 06/09/16 07:08 Anion Gap 15 (10-20) 06/09/16 07:08 BUN 9 mg/dL (7-17) 06/09/16 07:08 Creatinine 0.7 MG/DL (0.7-1.2) 06/09/16 07:08 Est GFR ( Amer) > 60 06/09/16 07:08 Est GFR (Non-Af Amer) > 60 06/09/16 07:08 Random Glucose 130 mg/dL (65-105) H 06/09/16 07:08 Calcium 8.1 mg/dl (8.6-10.4) L 06/09/16 07:08 Phosphorus 2.5 mg/dL (2.5-4.5) 06/09/16 07:08 Magnesium 1.6 mg/dL (1.6-2.3) 06/09/16 07:08 Total Bilirubin 0.6 mg/dL (0.2-1.3) 06/09/16 07:08 AST 28 U/L (14-36) 06/09/16 07:08 ALT 23 U/L (9-52) 06/09/16 07:08 Alkaline Phosphatase 54 U/L (38-126) 06/09/16 07:08 Total Protein 6.5 g/dL (6.3-8.3) 06/09/16 07:08 Albumin 3.2 g/dL (3.5-5.0) L 06/09/16 07:08 Globulin 3.3 gm/dL (2.2-3.9) 06/09/16 07:08 Albumin/Globulin Ratio 1.0 (1.0-2.1) 06/09/16 07:08 Blood Type A POSITIVE 06/07/16 11:50 Antibody Screen Negative 06/07/16 11:50 - Hospital Course Hospital Course: 61F with PMH: asthma and morbid obesity with left knee osteoarthritis failed conservative management and elected for TKR. Postoperative imaging demonstrated acceptable position of prosthesis. Medical consultation was requested for post operative medical management. Patient's post operative course was complicated by acute blood loss anemia, hemodynamically stable and well tolerated, no treatment needed. Patient tolerated PT/OT well. Patient received VTE prophylaxis in the form of venodynes and aspirin 81mg PO BID per Dr. Coello, which was continued upon d/ c. Patient was discharged to [facility], was WBAT LLE, ambulating with walker , and given instructions for daily dressing changes after operative dressing removed on POD #7, and to f/u Dr. Coello in approx. 10 days. Discharge Exam - Head Exam Head Exam: NORMAL INSPECTION Discharge Plan - Follow Up Plan Condition: GOOD Disposition: REHAB FACILITY/REHAB UNIT Instructions: Pain Management After Surgery (DC), Precautions after Total Joint Replacement Surgery (DC), Knee Replacement (DC) Referrals: Jacinto Coello III, MD [Staff Provider] - 2 Weeks (WBAT LLE Remove dressing on 06/14 and replace with dry sterile dressing and linda knee immobilizer at night, may remove during day f/u Dr. Coello 2 weeks call for appointment)
[2016-06-09 15:42] VITALS: BP 145/80; PULSE 94; TEMP 99.3; O2SAT 100
== END 2016-06-09 16:25 | DRG 470 ==
LOC: C.9S 06-07 10:27 → C.6T 06-08 00:25
PROVIDERS: ADMIT Orthopaedic Surgery; ATTEND Orthopaedic Surgery
PROC: XR2H021 Monitoring of Left Knee Joint using Intraoperative Knee Replacement Sensor, Open Approach, New Technology Group 1 (ICD-10-PCS; 2016-06-07)
PROC: 0SBD0ZZ Excision of Left Knee Joint, Open Approach (ICD-10-PCS; 2016-06-07)
PROC: 0SRD0J9 Replacement of Left Knee Joint with Synthetic Substitute, Cemented, Open Approach (ICD-10-PCS; principal; 2016-06-07 13:30)
DX: M17.12 Unilateral primary osteoarthritis, left knee (principal); M65.862 Other synovitis and tenosynovitis, left lower leg; D62 Acute posthemorrhagic anemia; R33.8 Other retention of urine; J45.909 Unspecified asthma, uncomplicated; E66.01 Morbid (severe) obesity due to excess calories; Z68.43 Body mass index [BMI] 50.0-59.9, adult; Z96.651 Presence of right artificial knee joint; Z90.49 Acquired absence of other specified parts of digestive tract; Z91.013 Allergy to seafood; Z98.84 Bariatric surgery status

== ENCOUNTER 2018-07-13 07:43 | Outpatient (CLI) | payer OTHER | END 2018-07-13 07:44 | disposition home or self-care (01) | LOC: C.LAB 07:43 | DX: R39.15 Urgency of urination (principal) ==

== ENCOUNTER 2018-07-13 07:47 | Outpatient (CLI) | payer OTHER | END 2018-07-13 07:48 | disposition home or self-care (01) | LOC: C.LAB 07:47 ==

== ENCOUNTER 2018-08-02 19:25 | Outpatient (CLI) | payer OTHER | END 2018-08-02 19:26 | disposition home or self-care (01) | LOC: C.SLEEP 19:26 | DX: G47.33 Obstructive sleep apnea (adult) (pediatric) (principal) ==